=== PATIENT | female | born 1965 | race American Indian/Alaskan Native ===

== ENCOUNTER 2017-02-05 15:14 | Outpatient (CLI) | payer OTHER | END 2017-02-05 15:15 | disposition home or self-care (01) | LOC: LABHHL 15:14 | PROVIDERS: ATTEND Internal Medicine Gastroenterology | DX: Z12.11 Encounter for screening for malignant neoplasm of colon (principal) | CPT/HCPCS: 88305 ==

== ENCOUNTER 2019-08-16 08:06 | Outpatient (CLI) | payer OTHER ==
--- NOTE | 2019-08-16 09:31 | Ultrasound Report ---
ULTRASOUND ABDOMEN, COMPLETE INDICATION: EPIGASTRIC PAIN. COMPARISON: CT abdomen and pelvis with contrast from 11/17/2010. FINDINGS: Pancreas: No significant abnormality. Abdominal Aorta: No significant abnormality. IVC: No significant abnormality. Liver: Normal in size with generalized increased echotexture. No additional significant abnormality. Gallbladder: No significant abnormality. Bile ducts: No significant abnormality. Common bile duct measures 6 mm. Kidneys: Right: A simple appearing upper pole cyst measures 1.7 x 1.4 cm. No additional significant a bnormality. Left : No significant abnormality. Spleen: No significant abnormality. Free fluid: None. Additional Findings: None. IMPRESSION: 1. No acute sonographic abnormality of the abdomen is seen to explain the patient's pain. 2. Simple right renal cyst as above. No follow-up imaging is indicated at this time. 3. Probable hepatic steatosis. Signer Name: Fran Griffin MD Signed: 08/16/2019 9:26 AM Workstation Name: [id number]
== END 2019-08-16 08:07 | disposition home or self-care (01) ==
LOC: SPVWC 08:06
PROVIDERS: ATTEND Internal Medicine Gastroenterology
DX: N28.1 Cyst of kidney, acquired (principal); K76.0 Fatty (change of) liver, not elsewhere classified
CPT/HCPCS: 76700